=== PATIENT | male | born 1950 | race Caucasian/White ===

== ENCOUNTER → 2016-04-16 | Outpatient (CLI) | payer MEDICARE, OTHER ==
[~2016-04-16] MED LIST: LISINOPRIL40 MG PO; METOPROLOL TART50 MG PO; NORCO 5-325 TA1 EACH PO; NORVASC 5 MG TAB5 MG PO
[2016-04-16 10:38] LABS: BUN/CREATININE RATIO 20 (0-10)
== END ==
LOC: KOH-I 08:30 → US 08:53 → KOH-I 09:00
PROVIDERS: Family Medicine
DX: R10.11 Right upper quadrant pain (principal); R94.5 Abnormal results of liver function studies; D13.5 Benign neoplasm of extrahepatic bile ducts; K82.4 Cholesterolosis of gallbladder; K83.8 Other specified diseases of biliary tract
CPT/HCPCS: 36415; 76705; 80053

== ENCOUNTER → 2016-04-22 | Outpatient (CLI) | payer MEDICARE, OTHER | LOC: MRI 09:24 | DX: E80.6 Other disorders of bilirubin metabolism (principal); R17 Unspecified jaundice; K83.8 Other specified diseases of biliary tract | CPT/HCPCS: 36415; 74181; 80076 ==

== ENCOUNTER → 2016-04-30 | Outpatient (CLI) | payer BC, MEDICARE, OTHER | LOC: OPSV2 09:00 | DX: Z01.810 Encounter for preprocedural cardiovascular examination (principal); Z01.818 Encounter for other preprocedural examination; I10 Essential (primary) hypertension; I49.9 Cardiac arrhythmia, unspecified | CPT/HCPCS: 93005 ==

== ENCOUNTER → 2016-05-05 | Day surgery (SDC) | payer MEDICARE, OTHER ==
[~2016-05-05] VITALS: Ht 175.3 cm; Wt 88.5 kg
== END | disposition home or self-care (01) ==
LOC: OR 07:24
PROVIDERS: Surgery
PROC: 0FT44ZZ Resection of Gallbladder, Percutaneous Endoscopic Approach (ICD-10-PCS; principal; 2016-05-05 08:20)
DX: K80.10 Calculus of gallbladder with chronic cholecystitis without obstruction (principal); D13.5 Benign neoplasm of extrahepatic bile ducts; E78.89 Other lipoprotein metabolism disorders; I10 Essential (primary) hypertension; M19.90 Unspecified osteoarthritis, unspecified site; F41.9 Anxiety disorder, unspecified; Z85.828 Personal history of other malignant neoplasm of skin; Z87.442 Personal history of urinary calculi; Z87.891 Personal history of nicotine dependence; Z82.49 Family history of ischemic heart disease and other diseases of the circulatory system; Z82.0 Family history of epilepsy and other diseases of the nervous system; Z79.82 Long term (current) use of aspirin; Z79.899 Other long term (current) drug therapy; Z98.890 Other specified postprocedural states
CPT/HCPCS: J0295; J1200; J2250; J2405; J2710; J3010; J7030; J7050; J7120; Q9962

== ENCOUNTER 2020-07-11 11:32 | Emergency (ER) | payer MEDICARE, OTHER ==
[2020-07-11] MEDS ORDERED: NORFLEX 100 MG100 MG PO (12:27)
[2020-07-11] MEDS ORDERED: LODINE CAP 300300 MG PO (12:27)
== END 2020-07-11 12:48 | disposition home or self-care (01) ==
LOC: ER1 11:32
DX: M54.42 Lumbago with sciatica, left side (principal)
CPT/HCPCS: 96372; 99283; J1100; J1885